=== PATIENT | female | born 1985 | race Caucasian/White ===

== ENCOUNTER 2016-04-04 09:25 | Emergency (ER) | payer OTHER ==
[~2016-04-04] VITALS: Ht 157.5 cm; Wt 65.0 kg
[2016-04-04 09:25] VITALS: BP 129/72; PULSE 89; RESP 18; TEMP 98.1; O2SAT 99
--- NOTE | 2016-04-04 10:56 | PD ---
HPI Chief Complaint: Injury Time Seen by Provider: 10:54 Travel History International Travel<30 days: No Contact w/Intl Traveler<30days: No Traveled to known affect area: No History of Present Illness HPI Patient comes in complaining of left ankle and left knee pain ongoing for approximately week. Patient states she was playing soccer a week ago when she stepped in hole twisting her left ankle. Patient reports she had x-rays done this past Thursday that were negative in [place] and has follow-up scheduled this upcoming Thursday for possible CT scan per patient in [place], however pain is not getting any better and she will not be [place] Thursday. She been taking naproxen for this and decided to come to the emergency Department for further treatment and evaluation. Patient reports her left ankle was swollen but has resolved. Patient states her past few days her left knee has been "clicking" a lot. Patient denies any other known injury. Patient denies any numbness or tingling , , fevers. Patient states she has been using the crutches that she was given intermittently as well as using the ankle brace. Patient after initial injury on Thursday she did go to a concert on Thursday. [facility] Past Medical History Medical History: Denies Significant Hx ?: Not : 3 Para: 2 Past Surgical History Section: Yes (2) Hysterectomy: Yes Tonsillectomy: Yes Social History Alcohol Use: No Tobacco Use: No Substance Use: No Allergies-Medications (Allergen,Severity, Reaction): Coded Allergies: No Known Allergies (Unverified , 04/04/16) Reported Meds & Prescriptions Reported Meds & Active Scripts Active Review of Systems Except as stated in HPI: all other systems reviewed are Neg Physical Exam Narrative GENERAL: Well-developed, overly nourished, in no acute distress, and non-ill appearing. SKIN: Warm and dry. HEAD: Atraumatic. Normocephalic. EYES: Pupils equal and round. EOMI. No scleral icterus. No injection or drainage. ENT: No nasal bleeding or discharge. Mucous membranes pink and moist. NECK: Trachea midline. Supple. No nuclear rigidity. CARDIOVASCULAR: Dorsal pulses 2+, nontender, and equal bilaterally. Capillary refill less than 2 seconds. No pedal edema. RESPIRATORY: No accessory muscle use. No respiratory distress. MUSCULOSKELETAL: No obvious deformities. No clubbing. No cyanosis. No edema. Full range of motion. Knee: Negative patellar apprehension, varus and valgus maneuvers, anterior draw test, and Tony test. Pulses equal BL distal to injury. Capillary refill less than 2 seconds distal to injury and equal BL. FROM distal to injury and equal BL. Strength distal to injury equal BL. NV intact distal to injury. Dorsal pulses equal BL. Ankle: Neagative anterior draw and Gan test. Negative Karen's sign. No laxity noted with passive inversion and eversion of BL ankles. Negative squeeze test. Pulses equal BL distal to injury. Capillary refill less than 2 seconds distal to injury and equal BL. Sensation equal BL 1st web space. FROM of toes distal to injury and equal BL. NV intact distal to injury and equal BL. Dorsal pulses equal BL. Patient reports tenderness to palpation medial aspect of left ankle. There is no ecchymosis, crepitus, or edema. NEUROLOGICAL: Awake and alert. No obvious cranial nerve deficits. Motor grossly within normal limits. Normal speech. PSYCHIATRIC: Appropriate mood and affect; insight and judgment normal. Data Data Last Documented VS Vital Signs Date Time Temp Pulse Resp B/P Pulse Ox O2 Delivery O2 Flow Rate FiO2 04/04/16 09:25 98.1 89 18 129/72 99 Orders Ankle, Complete ([id number]) (04/04/16 ) Knee, Complete (4vws) (04/04/16 ) Splint Or Brace Apply/Monitor (04/04/16 12:02) [facility] Medical Decision Making Medical Screen Exam Complete: Yes Emergency Medical Condition: Yes Differential Diagnosis Fracture, sprain, contusion, other Narrative Course There is no clinical evidence for fracture. There is no clinical evidence to suspect bony injury by exam. Radiographic examination revealed no fracture seen at this time. No obvious ligamental injury or internal derangement is noted at this time. The distal extremity appears neurovascularly intact, without evidence of neurovascular injury nor compartment syndrome. Tendon exam also was intact. The effected limb was splinted. Patient was offered a knee immobilizer , but has declined. The patient was discharged with sprain and splint care instructions and given warnings for vascular compromise. The patient is to follow up with Orthopedics. The patient agrees with plan. Patient in no obvious distress upon re-evaluation. All pertinent Radiology result(s) discussed with patient. MRI is not clinically warranted at this time in the emergency department and can be obtained as an outpatient by orthopedic if deemed necessary at that time. Any questions/concerns in reference to patient diagnosis/condition discussed and clarified prior to patient's discharge. Reinforced sheer importance of close follow up with patient's primary physician or primary care clinic and orthopedics. Instructed patient to return to ED immediately, if symptoms return/worsen. Pt showed understanding of above instructions. Further instructions and recommendations were detailed in discharge paperwork. Pt ambulated without difficulty out of ED at discharge with crutches. Diagnosis Primary Impression: Left ankle sprain Qualified Code: S93.402D - Sprain of left ankle, unspecified ligament, subsequent encounter Additional Impression: Left knee pain Qualified Code: M25.562 - Acute pain of left knee Referrals: Saul Coronel MD Patient Instructions: Ankle Sprain (ED), Ankle Sprain Exercises (GEN), Ankle Stirrup Splint (ED), Crutch Instructions (ED), General Instructions, Knee Pain ( ED), Splint Care (ED) Additional Instructions: Follow-up with your primary care physician and/or orthopedics in 2-3 days for reevaluation. Continue using ankle stirrup splint and crutches as needed. Continue taking naproxen as previously prescribed. Apply ice to affected area 20 minutes per hour as needed for pain. Wear kimmie wrap for comfort as needed.. Return to the emergency department if symptoms get worse. Disposition: 01 DISCHARGE HOME Condition: Stable Iftikhar Moscoso Apr 04, 2016 10:56
--- NOTE | 2016-04-04 11:41 | RADRPT ---
EXAM DATE/TIME: 04/04/2016 11:24 [facility] COMPARISON: No previous studies available for comparison. INDICATIONS : Left knee pain from twisting leg while playing soccer. MEDICAL HISTORY : None. SURGICAL HISTORY : None. ENCOUNTER: Initial ACUITY: 1 week PAIN SCORE: 5/10 LOCATION: Left Knee FINDINGS: Four view examination of the left knee demonstrates no evidence of fracture or dislocation. Bony min eralization is normal. The articular surfaces are intact. The suprapatellar soft tissues have a nor mal configuration. CONCLUSION: Negative. MRI would offer more information.. Piero Hwang MD FACR on April 04, 2016 at 11:39 Board Certified Radiologist. This report was verified electronically.
--- NOTE | 2016-04-04 11:42 | RADRPT ---
EXAM DATE/TIME: 04/04/2016 11:27 [facility] COMPARISON: No previous studies available for comparison. INDICATIONS : Left ankle pain from twisting leg playing soccer. MEDICAL HISTORY : None. SURGICAL HISTORY : None. ENCOUNTER: Initial ACUITY: 1 week PAIN SCORE: 5/10 LOCATION: Left Ankle FINDINGS: Three view exam was performed of the left ankle. The bony structures are in normal alignment. No ev idence of fracture, dislocation, or soft tissue swelling. The ankle mortise is intact. No radiopaqu e foreign bodies are seen. Bony mineralization is normal. CONCLUSION: Negative for fracture or dislocation. Follow up in 7-10 days is suggested if symptoms persist. Piero Hwang MD FACR on April 04, 2016 at 11:40 Board Certified Radiologist. This report was verified electronically.
== END 2016-04-04 12:25 | disposition home or self-care (01) ==
LOC: NEPB 09:25
DX: S93.402A Sprain of unspecified ligament of left ankle, initial encounter (principal); M25.562 Pain in left knee; W17.2XXA Fall into hole, initial encounter; Y93.66 Activity, soccer; Y92.838 Other recreation area as the place of occurrence of the external cause
CPT/HCPCS: 73564; 73610; 99283